=== PATIENT | female | born 1945 | race Caucasian/White ===

== ENCOUNTER → 2016-12-28 | Outpatient (CLI) | payer OTHER | LOC: MMPC 11:11 | PROVIDERS: ATTEND Internal Medicine | DX: M54.5 Low back pain (principal); Z02.89 Encounter for other administrative examinations | CPT/HCPCS: 99213; G0463 ==

== ENCOUNTER → 2017-03-29 | Outpatient (CLI) | payer OTHER | LOC: MMPC 11:11 | PROVIDERS: ATTEND Internal Medicine | DX: I95.1 Orthostatic hypotension (principal) | CPT/HCPCS: 99214; G0463 ==